=== PATIENT | female | born 1995 | race Caucasian/White ===

== ENCOUNTER 2019-07-01 09:07 | Outpatient (CLI) | payer MEDICAID, SELFPAY ==
--- NOTE | 2019-07-01 11:19 | DI.US_ITS ---
EXAM: US OB 2-3 TRIMESTER CLINICAL HISTORY: SURVEY, SUPERVISION NORMAL FIRST Z34.02 TECHNIQUE: Ultrasound performed using standard protocol. COMPARISON: No exams were available for comparison FINDINGS: The fetus is in cephalic position. The placenta is anterior. The biometric measurements correspond to 21 weeks 0 days. No abnormalities are seen. The amount of amniotic fluid appears visuall y normal. IMPRESSION: survey is within normal limits.
== END 2019-07-01 09:27 ==
PROVIDERS: PCP Family Medicine; Visit Provider Family Medicine
DX: Z34.92 Encounter for supervision of normal pregnancy, unspecified, second trimester (principal)
CPT/HCPCS: 76805

== ENCOUNTER 2019-11-20 20:30 | Inpatient (IN) | payer MEDICAID, SELFPAY ==
[2019-11-20 21:41] LABS: HCT 38.8 % (36.0-46.0); HGB 13.4 g/dL (12.0-15.5); Mean Corp. HGB Concentration 34.5 g/dL (32.0-36.0); Mean Corpuscular Hemoglobin 29.6 pg (27.0-33.0); Mean Corpuscular Volume 85.8 fL (80-95); Mean Platelet Volume 9.6 fL (8.0-11.0); Platelet Count 289 x1000/uL (130-400); RBC 4.52 m/cumm (4.00-5.20); RBC Distribution Width 14.3 % (11.7-14.6); White Blood Cell Count 11.36 k/cumm (4.4-10.8)
[2019-11-20] MEDS: FentaNYL/ROPIvacaine 2 mcg/ml and 0.1% 200 ML CADD Cassette EP (21:55)
[2019-11-21] MEDS: Amoxicillin 500 MG CAP PO (13:27)
[2019-11-21] MEDS: Docusate Sodium 100 MG CAP PO (14:02)
[2019-11-21 20:29] LABS: COVID-19 RT-PCR UVMMC Result Negative (Negative)
[2019-11-22 06:51] LABS: HCT 38.5 % (36.0-46.0); HGB 13.1 g/dL (12.0-15.5); Mean Corpuscular Hemoglobin 29.7 pg (27.0-33.0); Mean Corpuscular Volume 87.3 fL (80-95); Mean Platelet Volume 9.6 fL (8.0-11.0); Platelet Count 286 x1000/uL (130-400); RBC 4.41 m/cumm (4.00-5.20); RBC Distribution Width 14.6 % (11.7-14.6); White Blood Cell Count 10.01 k/cumm (4.4-10.8)
[2019-11-22] MEDS: Ibuprofen 600 MG TAB PO (07:39)
[2019-11-22] MEDS: Docusate Sodium 100 MG CAP PO (07:39)
[2019-11-22] MEDS: Acetaminophen 325 MG TAB 650 MG PO (07:40)
[2019-11-22] MEDS: Amoxicillin 500 MG CAP PO (07:40)
== END 2019-11-22 09:20 | disposition home or self-care (01) | DRG 807 ==
PROVIDERS: Admitting Provider Family Medicine; PCP Family Medicine; Visit Provider Family Medicine
DX: O70.1 Second degree perineal laceration during delivery (principal); Z37.0 Single live birth; Z3A.39 39 weeks gestation of pregnancy; O99.344 Other mental disorders complicating childbirth; F32.9 Major depressive disorder, single episode, unspecified
CPT/HCPCS: 36415; 85027; 86850; 86900; 86901; U0003

== ENCOUNTER 2022-10-06 04:50 | Inpatient (IN) | payer MEDICAID, SELFPAY ==
[2022-10-06] VITALS (118 sets, daily range): BP systolic 91–128; BP diastolic 49–76; PULSE 0–118; RESP 18; TEMP 36.7–37.4; O2SAT 81–100; BMI 30.8
[2022-10-06] MEDS: Normal Saline Flush 10 ML SYR (05:20)
--- NOTE | 2022-10-06 05:39 | HPE_ITS ---
Date of service: 10/06/22 Time of Service: 05:39 Assessment and Plan Assessment and plan (1) Rh negative state in antepartum period: Status: Acute (2) : Status: Acute Assessment and plan: 27yo with Rh- RI GBS- presents in active labor at term. Admit with routine care. Requests epidural which we will request. She is using nitrous for pain c ontrol in the mean time. Last labor was quick, and given current exam, expect the same now. No other concerns. Routine labor care. OB-HPI Labor/Delivery History of Present Illness Reason for Visit: labor Chief Complaint: Uterine Contractions. SHAVON Calculator Estimated Delivery Date Method Current WG Current Estimate 10/05/22 Ultrasound #1 40w 1d Other Estimates 10/03/22 LMP (Certain) 40w 3d History of Present Expected Delivery Route/Plan 27yo at 40.1 weeks by 1st tri US presented in labor. Rh-, recieved Rhogam, GBS-, She has been barbara irregularly for weeks, was seen earlier last night with mild regular contractions but cervix had not changed. At 3am she called when contractions became more intense. She presented here in active labor reporting rectal pressure and possible SROM at home. On exam, SVE by me was 5/90/-1/soft/anterior, bulging bag with membranes intact. She is using nitrous and requesting epidural. Normal exam, no issues with previous deliveries. Anticipate . Assessment: History Reviewed & Current Review of Systems All systems reviewed & are unremarkable except as noted in HPI and below PFSH All Active Problems (Updated 10/06/22 @ 05:51 by Paul Navarro) (Acute) Rh negative state in antepartum period (Acute) Social History Smoking/Tobacco Use Status: Current every day Smoking risk assessment performed?: Yes Drug use: Occasionally Meds Allergies and Home Medications Allergies Allergy/AdvReac Type Severity Reaction Status Date / Time peaches Allergy Severe itchy Uncoded 01/26/16 20:26 throat/throat closes spiders and fleas Allergy Severe throat Uncoded 01/26/16 20:25 closes up / area dejesus Home Medications Medication Instructions Recorded Confirmed Type folic acid 400 mcg tablet 800 mcg PO DAILY 07/17/14 11/21/19 History vit no.95-ferrous 1 tab PO DAILY 07/17/14 11/21/19 History fumarate 28 mg-folic acid 800 mcg tablet amoxicillin 500 mg capsule 11/21/19 History sertraline 25 mg tablet mg 11/21/19 History Exam Physical Exam Vital Signs Reviewed: Yes Detailed Labor and Delivery Exam Dilation: 5 Effacement (%): 90 station: -1 Cervix position: anterior Consistency: soft Ledezma Score: Cervical Points Exam 0 1 2 3 Dilation Closed 1-2cm 3-4 cm 5-6cm Effacement 0-30% 40-50% 60-70% 80% Consistency Firm Medium Soft Station -3 -2 -1,0 +1,+2 Position Posterior Mid Anterior LEDEZMA Score(Cervical Ripeness Score): 12 Amniotic Membrane Status: Intact Monitor Mode: External Contraction Frequency(min): 5 Contraction Duration(sec): 60 Contraction Intensity: Moderate Fetus A Heart Rate Baseline: 130 Monitor Accelerations: 15 X 15 Monitor Decelerations: None Variability: Moderate (6-25 BPM) Presentation: Vertex Categories: Category I HEENT Exam HEENT Exam: Normal Respiratory Exam Respiratory Exam: Normal Cardiovascular Exam Cardiovascular Exam: Normal Abdominal Exam Abdominal Exam: Normal Exam Exam: Normal Extremities Exam Extremities Exam: Normal Skin Exam Skin Exam: Normal Neurological Exam Neurological Exam: Normal Psychiatric Exam Psychiatric Exam: Normal Results Results Group Beta Strep: Negative Blood Type: O- Rubella Status: Immune Risk Assessment Risk for Shoulder Dystocia Increased Risk?: No Risk for Pre-Eclampsia Daily Dose ASA Indicated: No Yes, if one or more: NEGATIVE FOR: Hx Pre-E/Gest HTN, Chronic HTN, Multiple Gestation, Pre-gestational DM, Renal Disease, Systemic Lupus or APA Syndrome Yes, if 2 or more: NEGATIVE FOR: Nulliparity, Age>= 35 yrs, >10yr btwn pregnancies, BMI>30, ethinicty, Mother/Sister w/ Pre-E or Previous IUGR Risk for Post- Hemorrhage At Risk?: No Counseled re: Active Management: Yes Risks Reviewed Risks Reviewed Upon Admission: Yes
[2022-10-06 05:40] LABS: HCT 38.5 % (36.0-46.0); HGB 13.3 g/dL (11.2-15.7); MCH 30.2 pg (27.0-33.0); MCHC 34.5 % (32.0-36.0); MCV 88 fL (80-95); MPV 9.2 fL (8.0-11.0); Platelet Count 291 10^3/uL (130-400); RDW 14.2 % (11.7-14.6); RDW-SD 44.7 fL; WBC 16.19 10^3/uL (4.4-10.8)
--- NOTE | 2022-10-06 05:40 | W.ANESPRE ---
General Info Date of Service Date Performed: 10/06/22 Height: 5 ft 3 in Weight: 78.925 kg Body Mass Index (BMI): 30.8 Meds Allergies and Home Medications Allergies Allergy/AdvReac Type Severity Reaction Status Date / Time peaches Allergy Severe itchy Uncoded 01/26/16 20:26 throat/throat closes spiders and fleas Allergy Severe throat Uncoded 01/26/16 20:25 closes up / area dejesus Home Medication Medication Instructions Recorded folic acid 400 mcg tablet 800 mcg PO DAILY 07/17/14 vit no.95-ferrous 1 tab PO DAILY 07/17/14 fumarate 28 mg-folic acid 800 mcg tablet amoxicillin 500 mg capsule 11/21/19 sertraline 25 mg tablet mg 11/21/19 Current Visit Medications: Current Medications Generic Name Dose Route Start Last Admin Trade Name Freq PRN Reason Stop Dose Admin Sodium Chloride 500 mls @ 0 mls/hr 10/06/22 04:57 Saline 500ml Bag IV PRN PRN As Directed IV Miscellaneous Supplies 1 each 10/06/22 05:00 Iv Access IV DIRECTED NANCY Sodium Chloride 0 ml 10/06/22 04:57 Normal Saline Flush 10 Ml Syr IVP PRN PRN PFSH Tobacco Smoking/Tobacco Use Status: Current every day Substance Use Substance use: Occasionally Vital Signs and Lab Results Lab Results 10/06/22 05:32 Blood Type / Crossmatch: No Data to Display Complete Blood Count: White Blood Count 16.19 10^3/uL (4.4-10.8) H 10/06/22 05:32 Red Blood Count 4.40 10^6/uL (3.93-5.22) 10/06/22 05:32 Hemoglobin 13.3 g/dL (11.2-15.7) 10/06/22 05:32 Hematocrit 38.5 % (36.0-46.0) 10/06/22 05:32 Platelet Count 291 10^3/uL (130-400) 10/06/22 05:32 Complete Metabolic Panel: No Data to Display Liver Function Panel: No Data to Display Coagulation Panel: No Data to Display Cardiac Panel: No Data to Display Arterial Blood Gas: No Data to Display Venous Blood Gas: No Data to Display Pancreas Panel: No Data to Display Thyroid Panel: No Data to Display Infectious Disease: Coronavirus (COVID-19)(PCR) Negative (Negative) 10/05/22 20:05 Coronavirus 2019 Source Nasal/Nares 10/05/22 20:05 Blood Cultures: No Data to Display Toxicology Panel: No Data to Display Panel: No Data to Display Anesthesia Assessment and Plan Anesthesia History Personal History: No History of Anesthesia Complications Family History: No Family History of Anesthesia Complications Exercise Tolerance Exercise Tolerance: Metabolic Equivalents>4 Cardiac & Pulmonary Exam Cardiac Exam: Normal S1/S2 Heart Sounds Pulmonary Exam: Clear Bilateral Breath Sounds Implantable Cardiac Device Does patient have a Pacemaker or an ICD?: No Airway Exam Known Difficult Airway: No Mallampati Class: 2 Mouth Opening: Normal (> 3cm) Thyromental Distance: Greater than 3 cm Neck Range of Motion: Full ROM Neck Circumference: Normal Teeth Condition: Normal Dentition ASA Classification ASA Score: ASA 2 Emergency Case?: No NPO Status NPO Status: Full Stomach Status Status: Confirmed Anesthesia Plan Resuscitation Status: Full Code Anesthesia Technique: Epidural Anesthesia Airway Planned: Natural Airway Monitors Used: Standard Monitors
[2022-10-06] MEDS: FentaNYL/ROPIvacaine 2 mcg/ml and 0.1% 200 ML CADD Cassette EP (06:05)
--- NOTE | 2022-10-06 06:26 | W.ANESNEU ---
Epidural/Spinal Catheter Date Performed: 10/06/22 Procedure Start: 06:01 Procedure Stop: 06:20 Requesting Provider: Pual Navarro Procedure Location: Obstetrics Reason Performed: Labor Epidural Standard Monitors Applied: Blood Pressure, SpO2 and See EMR for corresponding vital signs Patient Position: Sitting Sedation Given (Indicate Dose Given): No Sedation given Patient Mental Status: Awake Sterility: Hand Hygiene, Surgical Cap, Surgical Mask, Sterile Gloves and Chlorhexidine Procedure Location: L2-L3 Interspace Epidural Needle: Tuohy 17 Guage Needle Length: 3.5 Inch Needle Approach: Midline Epidural Procedure: Skin Prepped, Sterile Drape Placed, 1% Lidocaine to skin and subcutaneous tissue with 25G needle, Tuohy Needle placed, SIGRID to Saline Used, Epidural Catheter Placed, Negative Heme, Negative CSF Flow and Tuohy Needle Removed Catheter Placed?: Catheter Placed Test Dose (Indicate Dose Given): 3ml 1.5% Lidocaine with 1:200K Epinephrine Given and Negative Test Dose Loss of Resistance Depth (cm): 8 Catheter depth at skin (cm): 15 Dressing: Sorbaview Dressing Placed Epidural Provider Bolus (Indicate Dose Given): Total bolus dose given in 3-5 ml divided doses and Total Ropivacaine 0.1% with Fentanyl 2mcg/ml Given from pump. (ml) Dose:: 15 mL Additives (Indicate Dose Given ): None Infusion Medication: Medication Infusion Began Medication Infusion: Ropivacaine 0.1% with Fentanyl 2mcg/ml Maintenance Infusion Rate (ml/hour): 10 PCEA Bolus Dose (ml): 5 Block Level: T9 Paresthesia: None Ultrasound: Not Used Number of Attempts (See previous attempts in note section): 1 Procedure Tolerated: No Complications Procedure Outcome: Successful Performed By: Velvet Mitchell
--- NOTE | 2022-10-06 08:04 | W.PM.OBNL1 ---
Date of service: 10/06/22 Time of Service: 08:04 Pelvic Exam Dilation: 9 Effacement (%): 100 station: -1 Cervix Position: anterior Consistency: soft Vaginal Exam Presentation: Cephalic Contractions Monitor Mode: External Contraction Frequency(min): 5 Contraction Duration(sec): 90 Intensity: Moderate/Strong Fetus A Monitor: External (US) Heart Rate Baseline: 140 Presentation: Cephalic Variability: Moderate (6-25 BPM) Categories: Category I FHR Rhythm: Regular Characteristics: Normal Accelerations: 15 X 15 Decelerations: None Amniotic Membrane Status: Ruptured Rupture Method: Artifical Amniotic Fluid: Clear Date of Membrane Rupture: 10/06/22 Time of Membrane Rupture: 08:04 Assessment and Plan Assessment and plan (1) : Status: Acute Assessment and plan: Shayla is progressing very well. AROM with clear fluid at 9/100/-1. Anticipate shortly. (2) Rh negative state in antepartum period: Status: Acute Objective Abnormal lab results 10/06/22 Range/Units 05:32 WBC 16.19 H (4.4-10.8) 10^3/uL Temp Pulse Resp BP Pulse Ox 37.2 C 73 18 100/58 L 97 10/06/22 07:29 10/06/22 08:02 10/06/22 07:31 10/06/22 07:29 10/06/22 08:00 Laboratory Results WBC 16.19 10^3/uL (4.4-10.8) H 10/06/22 05:32 RBC 4.40 10^6/uL (3.93-5.22) 10/06/22 05:32 Hgb 13.3 g/dL (11.2-15.7) 10/06/22 05:32 Hct 38.5 % (36.0-46.0) 10/06/22 05:32 MCV 88 fL (80-95) 10/06/22 05:32 MCH 30.2 pg (27.0-33.0) 10/06/22 05:32 MCHC 34.5 % (32.0-36.0) 10/06/22 05:32 RDW 14.2 % (11.7-14.6) 10/06/22 05:32 Plt Count 291 10^3/uL (130-400) 10/06/22 05:32 MPV 9.2 fL (8.0-11.0) 10/06/22 05:32 Patient ABO/Rh O Negative 10/06/22 05:32 Antibody Screen POSITIVE 10/06/22 05:32 Antibody Identification Anti-D 10/06/22 05:32 Vital Signs Reviewed: Yes Subjective Patient Reports: No new Complaints Interval history since last seen: Epidural is effective with excellent movement still. Results Hemoglobin/Hematocrit: Hgb 13.3 g/dL (11.2-15.7) 10/06/22 05:32 Hct 38.5 % (36.0-46.0) 10/06/22 05:32 Abnormal Lab Findings: Abnormal Labs 10/06/22 05:32 WBC 16.19 H
--- NOTE | 2022-10-06 08:31 | PLAC_PTH ---
PATIENT: Shayla Luis LOC: OBS U#:[id number] AGE/SX: 27/F ROOM: OBS.303 RE10/06/[address]: Paul Navarro : 1995 BED: A DIS: 10/07/2022 SPEC #: [id number] RECD: 10/07/22 11:22 STATUS: JUSTIN REQ #: [id number] EVANS: 10/06/22 08:[address]: Paul Navarro DEPT: Surgical Specimen RECD BY: Daniela Shetty ENTERED: 10/07/22 11:23 SP TYPE: PLAC OTHR DR: Shira Gilliam Tissues: 1 - PLACENTA (3RD TRIMESTER) Procedures: GROSS AND MICRO LEVEL 5 Comments: [id number]
--- NOTE | 2022-10-06 08:37 | W.OBDELIVERY ---
Date of service: 10/06/22 Time of Service: 08:26 OB Labor/ Delivery Information Baby A Delivery Delivery Method: Spontaneaous Presentation: Cephalic Cephalic Position: Vertex Vertex Position: Right Occipital Anterior Breech Position: N/A Cord Description-Baby A: 3 Vessels Amniotic Fluid: Clear Delivery Outcome: Liveborn Transferred: Remains with Mother Note: Quick labor, AROM at 9cm, then quickly progressed to complete with urge to push. Pushed effectively, head delivered in ED position, restituted and delivered without incident. Vigorous on perineum. Placed immediately on moms abdomen. Once cord had stopped pulsating (>90 seconds) cord was clamped and cut by dad. Pitocin infusion started. Placenta delivered spontaneously, 3 vessel cord. There was a soft but distinct mass in the placenta so will send for pathology. No lacerations. Fundus firm, bleeding minimal. Anticipate routine post care. Rh- so will run labs on baby. Rhogam as necessary. Providers Doctor: Paul Navarro Licensed Marine Engineer: Velvet Mitchell Wire Web Worker: Paul Navarro Nurse: Georgette Ramirez Nurse: Melita Garrett Labor/Delivery Information Number of Babies in Womb: 1 Steroids Given: None Reason Steroids Not Administered: N/A Group Beta Strep: Negative Antibiotics Administered: No Rubella Status: Immune Blood Type: O- Born En Route: No Maternal Complications: None Shoulder Dystocia: No Stages of Labor Onset of Labor Date: 10/06/22 Onset of Labor Time: 03:00 Complete Dilatation Date: 10/06/22 ROM Baby A: 10/06/22 ROM Baby A: 08:04 Infant Delivery Date-Baby A: 10/06/22 Delivery Time-Baby A: 08:26 Placenta Delivery Date-Baby A: 10/06/22 Placenta Delivery Time-Baby A: 08:31 Labor-Stage 3 Duration: 5 minutes Total Length of Labor-Baby A: 5 hours and 26 minutes Placenta Cultured: No Placenta Status: Delivered Baby A Infant Gender: Male Gestational Status: Term (39-41.6 wks) Gestational Age in Weeks/Days: 40 Weeks and 3 Days Score-1 Minute Interval(Baby A) Heart Rate-1 minute: 100 BPM or Greater Respiratory Effort- 1 minute: Spontaneous/Strong Cry Muscle Tone-1 minute: Active Movement Reflex Response-1 minute: Prompt Response Color-1 minute: Bluish Hands or Feet Total Score-1 minute: 9 Score-5 Minute Interval(Baby A) Heart Rate- 5 minute: 100 BPM or Greater Respiratory Effort-5 minute: Spontaneous/Strong Cry Muscle Tone-5 minute: Active Movement Reflex Response-5 minute: Prompt Response Color-5 minute: Bluish Hands or Feet Total Score- 5 minute: 9
--- NOTE | 2022-10-06 12:45 | W.ANESPOSTOP ---
Postoperative Evaluation Date, Time and Location Date Performed: 10/06/22 Time Performed: 09:55 Patient Location: Obstetrics Vital Signs Most Recent Imported Vital Signs: Most Recent Vital Signs Temp Pulse Resp BP Pulse Ox 36.9 C 74 18 99/51 L 97 10/06/22 11:35 10/06/22 11:35 10/06/22 11:35 10/06/22 11:35 10/06/22 11:35 Assessment Mental Status: Awake (Alert & Oriented to Patient Baseline) Airway and Respiratory Function: Patent airway with normal (patient baseline) respiratory exam Cardiovascular Function: Hemodynamically Stable Hydration Status: Adequately Hydrated Nausea & Vomiting: No Nausea or Vomiting Pain: Pt. Denies Any Pain Peripheral Nerve Block: Patient did not receive a nerve block
[2022-10-06] MEDS: Ibuprofen 600 MG TAB PO (17:58)
[2022-10-06] MEDS: Acetaminophen 325 MG TAB 650 MG PO (17:58)
[2022-10-07 05:39] VITALS: BP 103/66; PULSE 89; RESP 18; TEMP 37.2
[2022-10-07 07:50] VITALS: PULSE 89; RESP 12; TEMP 36.8
[2022-10-07] MEDS: Acetaminophen 325 MG TAB 650 MG PO (15:32)
[2022-10-07] MEDS: Ibuprofen 600 MG TAB PO (15:32)
--- NOTE | 2022-10-07 16:32 | W.PM.OBDISCH ---
Date of service: 10/07/22 Time of Service: 16:32 DS: Diagnosis Discharge Diagnosis (1) : Status: Acute Asessment and Plan: (2) Rh negative state in antepartum period: Status: Acute Asessment and Plan: RHOGAM given Discharge Plan Disposition Patient Disposition: Home Condition: Good Discharge Details Reason For Visit: Labor Admit Date/Time: 10/06/22 04:50 Admit Provider: Paul Navarro Attending Provider: Paul Navarro Primary Care Provider: Shira Gilliam Hospital Course Hospital Course: as above Home Meds and New Rx's Prescriptions: No Action folic acid 400 MCG tablet 800 mcg PO DAILY PNV cmb#95-ferrous fumarate-FA 1 EACH tablet 1 tab PO DAILY amoxicillin 500 mg capsule Patient Comments: take 1 capsule by mouth three times a day for 7 days sertraline 25 mg tablet Patient Comments: take 1 tablet by mouth once daily Discharge Instructions Activity:: Activity as Tolerated Equipment/Supplies:: No Equipment Needed Diet:: As Tolerated Discharge Orders Discharge Orders: Discharge Order (Routine); Ordered 10/07/22 Ordered By: Meir Gonzales Discharge Data Discharge Comment: as above OB:DS Summary Summary Vaginal Delivery Method: Spontaneaous Episiotomy Description: None Laceration Description: None Laceration Extension: N/A Contraception Discussed Contraception Discussed: Yes, Gender-Baby A: Male weight: 2495 g Status at Discharge Functional status at discharge: independent ambulation Overall status at discharge: patient is back to baseline Mental Status: mental status grossly normal Speech and Movement: speech and movement normal Mood: congruent mood Affect: normal affect Exam Physical Exam Vital signs: Temp Pulse Resp BP Pulse Ox 36.8 C 89 12 103/66 98 10/07/22 07:50 10/07/22 07:50 10/07/22 07:50 10/07/22 05:39 10/06/22 15:01 Additional findings Additional findings: Shayla has recovered well. Expected dec in lochia Bonding with Intends to start IUD/Kylah . Hopes to hand pump, with formula via bottle as back up. no sertraline for two days no cigs for two days - intends to discuss quitting/reducing with Shira. O: Alert, comfortable firm fundus at umbilicus Vitals are good see AB screen - needs RHOGAM - received already A: Term - SGA infant Routine pp course - will f/u in [place] for pp check, breast feeding support and WT ck P: D/C with f/u plans as above Judson Gonzales PFSH All Active Problems (Acute) Rh negative state in antepartum period (Acute) Social History Smoking/Tobacco Use Status: Current every day Smoking risk assessment performed?: Yes Drug use: Occasionally Do you feel safe at home: Yes Do you feel safe in your relationship?: Yes DS: Data Vitals/I&O Vitals and I&O: Vital Signs Temperature 36.8 C 10/07/22 07:50 Pulse 89 10/07/22 07:50 Pulse Rhythm Regular 10/06/22 20:30 Respiratory Rate 12 10/07/22 07:50 Blood Pressure 103/66 10/07/22 05:39 Blood Pressure Mean 78 10/07/22 05:39 Pulse Oximetry 98 10/06/22 15:01 Pain Level 2 10/07/22 15:32 Comment Patient denies feeling lightheaded or dizzy. 10/06/22 15:01 Intake & Output 10/06/22 10/07/22 10/07/22 23:59 11:59 23:59 Output Total 600 / 900 Balance -600 / -900 Output: Urine 600 / 900 Data Completed and Pending Labs on day of discharge: Labs from last 24 hours 10/07/22 10/06/22 06:20 05:32 Patient ABO/Rh O Negative Antibody Screen POSITIVE Antibody Identification Anti-D Screen Pending Rhogam Unit Number [id number] Unit Expiration Date 08/09/23 Product Lot # [id number]
== END 2022-10-07 19:40 | disposition home or self-care (01) | DRG 806 ==
LOC: OBS 19:03 → BCD 10-07 09:35
PROVIDERS: Admitting Provider Family Medicine; PCP Family Medicine; Visit Provider Family Medicine
DX: O43.193 Other malformation of placenta, third trimester (principal); O36.0930 Maternal care for other rhesus isoimmunization, third trimester, not applicable or unspecified; O43.813 Placental infarction, third trimester; O99.334 Smoking (tobacco) complicating childbirth; F17.210 Nicotine dependence, cigarettes, uncomplicated; Z3A.40 40 weeks gestation of pregnancy; Z37.0 Single live birth
CPT/HCPCS: 36415; 85027; 85461; 86850; 86900; 86901; 90384; 86870; 88307; J2790

== ENCOUNTER 2022-10-07 14:26 | Outpatient (CLI) | payer MEDICAID, SELFPAY ==
[2022-10-05 20:00] VITALS: BP 108/61; PULSE 97; RESP 18; TEMP 37.1
[2022-10-05 20:07] VITALS: BP 108/61; PULSE 97
[2022-10-05 20:12] LABS: Source Nasal/Nares
[2022-10-05 20:44] LABS: COVID-19 PCR Negative (Negative)
== END 2022-10-07 14:27 | disposition home or self-care (01) ==
LOC: BCD 11-26 14:26
PROVIDERS: PCP Family Medicine; Visit Provider Family Medicine
DX: O47.1 False labor at or after 37 completed weeks of gestation (principal); Z20.822 Contact with and (suspected) exposure to COVID-19
CPT/HCPCS: 87635; G0378

== ENCOUNTER 2024-07-05 03:02 | Outpatient (CLI) | payer MEDICAID, SELFPAY | END 2024-07-05 03:03 | disposition home or self-care (01) | LOC: LBO 03:03 | PROVIDERS: PCP Family Medicine; Visit Provider Obstetrics & Gynecology | DX: O36.0130 Maternal care for anti-D [Rh] antibodies, third trimester, not applicable or unspecified (principal); O26.893 Other specified pregnancy related conditions, third trimester; Z67.91 Unspecified blood type, Rh negative; Z34.93 Encounter for supervision of normal pregnancy, unspecified, third trimester | CPT/HCPCS: 36415; 86850; 86900; 86901; 90384 ==